=== PATIENT | female | born 1985 | race Caucasian/White ===

== ENCOUNTER 2019-03-14 08:02 | Inpatient (IN) | payer OTHER ==
[2019-03-14] MEDS ORDERED: Lactated Ringers 1000 ML Bag* 1,000 ML IV ONE ×2 (09:24→23:16)
[2019-03-14] MEDS ORDERED: Buffered Lidocaine 1% SYRIN* 1 ML/SYRINGE INTRADERM ONE (09:24)
--- NOTE | 2019-03-14 09:34 | HP ---
General Information - Reason for Visit Post term for induction of labor - General Information Maternal Age: 34 Grav: 3 Para: 0 SAB: 0 IEA: 2 Estimated Due Date: 03/06/19 Determined By: Early Ultrasound Maternal Blood Type and Rh: O Negative - Results this Serology/RPR Result: Non-Reactive Rubella Result: Immune HBsAg Result: Negative HIV Result: Negative GBS Culture Result: Negative Past Medical History Delivery History: See Records Delivery History Comment: No previous deliveries Pertinent Past Medical History: Non-Contributory Pertinent Past Surgical History: None Pertinent Family History: See Records Family History Comment: Hypercholesteremia HTN Breast ca, mother COPD kidney dz CAD bladder cancer Heart dz diabetes - Antepartal Records Antepartal Records: Reviewed, Complicated by: - 1 elevated BP; of her mother; Rh negative Review of Systems Constitutional: Comfortable CV Complaint: No Respiratory: Shortness of Breath: No Gastrointestinal: Normal Bowel Movement, Nausea Genitourinary: No Leaking Fluid, Spotting Musculoskeletal: No Complaint Neurological: No Headache, Blurred Vission - Mild, past few days; possible MAI prodrome vs sleep deprivation Movement: Normal Exam Vital Signs 03/14/19 08:30 Temperature 98.7 F Pulse Rate 103 Respiratory 20 Rate Blood Pressure 117/78 (mmHg) O2 Sat by Pulse 99 Oximetry - Measurements Height: 5 ft 3 in Weight: 201 lb Weight in lbs: 201.101659 Body Mass Index (BMI): 35.6 Pre- Weight: 165 lb Weight Gained This : 36 lbs and 0 ozs - Exam Breast: Breast Exam Deferred CVA: No CVA Tenderness Extremities: No Edema Heart: Normal Rhythm/Heart Sounds HEENT: No Significant Findings Lungs: Clear Bilaterally Rectal: Rectal Exam Deferred Reflexes: DTR 2+, - - no clonus Thyroid: - - WNL @ entry to care - Abdominal Exam Abdomen Exam: Non-Tender, Fundal Height Consistent with Dates - Ultrasound/Biophysical Profile Ultrasound Status: Not Done Targeted Exam Findings Estimated Weight: 7.5-8lb Cervical Exam: 2cm Effacement: 80% Station: -1 Presenting Part: Vertex Membrane Status: Intact Bleeding/Discharge: None EFM Findings - External Monitor Findings Baseline Heart Rate: 150 External Monitor Findings: Accelerations Present, No Pattern of Variable or Late Decelerations, Variability Moderate Contractions: Irregular, Mild Contraction Frequency: "cramping" Assessment/Plan - Assessment IUP @ 41+1 weeks gestation for induction of labor. Intact membrane. No evidence acidemia. - Plan Plan: Induction, Admit - Anticipate Vaginal Delivery Plan Comment: Admit to L&D. MAYANK discussion ripening with Cook's balloon catheter with addition of pitocin for ripening/induction. Patients in agreement. Will likely desire epidural but may consider nitrous for pain management. Anticipate SVB. - Date/Time of Admission Date of Admission: 03/14/19 Time of Admission: 09:15
[2019-03-14] MEDS ORDERED: Lactated Ringers 1000 ML Bag* 1,000 ML IV SCH ×3 (10:00→23:45)
[2019-03-14 10:22] LABS: Urine Benzodiazepine Screen None Detected (None Detect); Urine Opiates Screen None Detected (None Detect)
[2019-03-14 13:04] LABS: ABS Basophils 0.1 10^3/ul (0-0.2); ABS Eosinophils 0.1 10^3/ul (0-0.6); ABS Lymphocytes 1.4 10^3/ul (1.0-4.8); ABS Monocytes 0.4 10^3/ul (0-0.8); ABS Neutrophils 8.4 10^3/ul (1.5-7.7); Eosinophil % 0.7 %; Hematocrit 37 % (35-47); Hemoglobin 13.1 g/dL (12.0-16.0); Lymphocyte % 13.5 %; Mean Corpuscular HGB Conc 35 g/dL (31-36); Mean Corpuscular Hemoglobin 32 pg (27-31); Mean Corpuscular Volume 93 fL (80-97); Mean Platelet Volume 8.4 fL (7.4-10.4); Platelet Count 213 10^3/uL (150-450); Red Blood Count 4.03 10^6 /uL (3.70-4.87); Red Cell Distribution Width 14 % (10-15); White Blood Count 10.3 10^3/uL (3.5-10.8)
--- NOTE | 2019-03-14 13:29 | PN ---
Progress Note - Progress Note Date of Service: 03/14/19 Note: S: Feeling comfortable, ate a little lunch. Was having more contractions when she was in bed but upright or on yoga ball they are less. O: VE deferred, Cook's filled to 80/80ml FHT 130 last check VSS, afebrile A: IUP @ 41+1 weeks gestation no evidence acidemia IBOW P: PARQ discussion using pitocin to augment cervical ripening/induction. Patient in agreement and will initiate low dose.
[2019-03-14] MEDS ORDERED: Oxytocin in LR* 20 UNITS/1,000 ML BAG IVPB SCH (14:00)
--- NOTE | 2019-03-14 20:37 | PN ---
Progress Note - Progress Note Date of Service: 03/14/19 Note: S: Patient comfortable. Feels ctx a little more strongly when she walks around but otherwise very manageable. O: VE: 6cm/90%/vtx -1 Pit at 12 FHT 135, +accels, no decels, mod kam VSS, afebrile UCs q 2-4 min A: IUP @ 41+1 weeks gestation for induction; early labor Intact membrane No evidence acidemia P: Per discussion with patient, will likely turn off pitocin at bedtime if no change in contraction pattern and opt to restart in am unless spontaneous labor. Therapeutic rest with nubain/phenergan discussed and PRN order written for difficulty sleeping.
[2019-03-14] MEDS ORDERED: Promethazine INJ(RESTRICTED)* 25 MG/ML 1 ML VIAL IV PRN (20:38)
[2019-03-14] MEDS ORDERED: Nalbuphine* 10 MG/ML 1 ML VIAL IV PRN (20:38)
[2019-03-14] MEDS ORDERED: OBEPIDURAL* 250 ML EPIDURAL ONE (22:10)
[2019-03-14] MEDS ORDERED: Phenylephrine 40 MCG/ML SYRINGE IV PUSH PRN ×2 (23:16)
[2019-03-14] MEDS ORDERED: Famotidine TAB* 20 MG PO PRN (23:16)
[2019-03-14] MEDS ORDERED: Sodium Citrate/Citric Acid* 15 ML UDC PO PRN (23:16)
[2019-03-14] MEDS ORDERED: Lactated Ringers 1000 ML Bag* 500 ML IV PRN ×2 (23:16)
[2019-03-14] MEDS ORDERED: OBEPIDURAL* 250 ML EPIDURAL SCH (23:45)
--- NOTE | 2019-03-15 01:46 | PN ---
Progress Note - Progress Note Date of Service: 03/15/19 Note: S: Feeling comfortable with epidural, notes a little sensation in her back. Got about an hour of sleep. Family leaving and will try to sleep again. O: VE deferred Pit @ 8 FHT 130, mod kam, +accels, no decels UCs q 2-3 min VSS, afebrile A: IUP @ 41+2 weeks gestation for induction of labor IBOW No evidence acidemia P: Encouraged rest and position changes side to side. Anticipate SVB.
--- NOTE | 2019-03-15 09:04 | PN ---
Progress Note - Progress Note Date of Service: 03/15/19 SOAP: Subjective: Pt comfortable with epidural, reports she slept well. Objective: Cervix: complete/ +1/ vtx/ bulging bag AROM performed to clear fluid Pitocin at 14 mu/min BP 126/87 FHR: baseline 145/ + accels/ no decels/ moderate variability UC:Q 2-3 minutes Assessment: Pt making good progress. No evidence of acidemia. Plan: AROM performed, will await increased sensation/ urge to push. Will do trial of pushing in 1 hour or sooner if experiencing urge to push.
[2019-03-15] MEDS ORDERED: Methylergonovine INJ* 0.2 MG/ML 1ML AMP ONE (11:49)
[2019-03-15] MEDS ORDERED: Witch Hazel PAD* JAR TOPICAL PRN (13:14)
[2019-03-15] MEDS ORDERED: Acetaminophen TAB* 325 MG PO PRN (13:14)
[2019-03-15] MEDS ORDERED: Dibucaine 1% 28.35 GM TUBE PR PRN (13:14)
[2019-03-15] MEDS ORDERED: Methylergonovine INJ* 0.2 MG/ML 1ML AMP IM ONE (13:14)
[2019-03-15] MEDS ORDERED: Glycerin ADULT SUPP PR PRN (13:14)
[2019-03-15] MEDS ORDERED: Oxytocin in LR* 20 UNITS/1,000 ML BAG IVPB SCH (14:00)
[2019-03-15] MEDS ORDERED: Lactated Ringers 1000 ML Bag* 1,000 ML IV SCH (14:00)
[2019-03-15] MEDS: Ibuprofen TAB* 600 MG PO PRN ×2 (14:39→20:41)
[2019-03-15] MEDS: Docusate CAP* 100 MG PO SCH ×2 (14:41→20:41)
[2019-03-16] MEDS: Ibuprofen TAB* 600 MG PO PRN ×3 (03:51→20:57)
[2019-03-16 07:01] LABS: ABS Eosinophils 0.2 10^3/ul (0-0.6); ABS Lymphocytes 2.2 10^3/ul (1.0-4.8); ABS Monocytes 0.9 10^3/ul (0-0.8); ABS Neutrophils 11.9 10^3/ul (1.5-7.7); Eosinophil % 1.2 %; Hematocrit 29 % (35-47); Hemoglobin 10.2 g/dL (12.0-16.0); Lymphocyte % 14.3 %; Mean Corpuscular HGB Conc 35 g/dL (31-36); Mean Corpuscular Hemoglobin 33 pg (27-31); Mean Corpuscular Volume 94 fL (80-97); Mean Platelet Volume 8.4 fL (7.4-10.4); Platelet Count 176 10^3/uL (150-450); Red Blood Count 3.11 10^6 /uL (3.70-4.87); Red Cell Distribution Width 14 % (10-15); White Blood Count 15.2 10^3/uL (3.5-10.8)
[2019-03-16] MEDS: Ferrous Gluconate TAB* 324 MG TAB PO SCH ×2 (08:11→21:13)
[2019-03-16] MEDS: Docusate CAP* 100 MG PO SCH ×3 (08:11→20:57)
--- NOTE | 2019-03-16 09:59 | PROCNOTE ---
[facility] OB: Delivery Note - Delivery A Date of : 03/15/19 Time of : 11:31 [place] Sex: Female Weight at : 3.33 kg Score 1 Minute: 9 Score 5 Minutes: 9 Gestational Age in Weeks and Days at Delivery: 41 Weeks and 2 Days Delivery Method: Spontaneous Vaginal Labor: Induced Did Patient attempt ?: N/A, No Previous Amniotic Fluid: Clear Anesthesia/Analgesia: CEI for Labor Delivered By: Alie Giron - Nursery Level of Nursery: Regular/Bedside - Perineum Perineal Injury Comment: left labial Perineal Repair: By Delivering Practioner - Events Delivery Events of Note: Pitocin During Labor, Post- Bleeding - Meds Given - Risk for Falls Other Risk for Falls: none - Additional Delivery Notes Additional Delivery Notes: Pt admitted to L&D for postdates induction of labor. Pt underwent cervical ripening followed by Pitocin induction. Pt requested and received labor epidural with good pain relief. AROM performed to clear fluid at 8cm and pt progressed to full dilation. Pt coached on pushing and began to push with good effort and steady descent. brought to and pt coached through slow, controlled delivery of the head. Shoulders followed with next push , and placed on maternal abdomen, dried and stimulated, with vigorous cry , good tone, HR> 100. After pulsation ceased, cord clamped x2 and cut by pt's sister. Placenta son delivered, don side with gentle cord traction. Pt with initial heavy bleeding, resolved with fundal massage, Pitocin administration and methergine administration. Inspection of the perineum revealed small left labial laceration, repaired. Pt and stable at this time, anticipate normal course.
[2019-03-16] MEDS ORDERED: RHO D Immune Globulin (HUMAN)* 300 MCG = 1,500 I.U. INJ IM ONE ×2 (11:47→12:31)
--- NOTE | 2019-03-16 17:51 | PTEDU ---
Patient Name: BILL GONZALEZ BILL GONZALEZ selected video: Follow Me Mum: The to Successful to view on 03/16/20 19 at 5:49:20 PM from [id number]
[2019-03-17 08:11] VITALS: BP 112/67
[2019-03-17] MEDS: Ferrous Gluconate TAB* 324 MG TAB PO SCH (08:26)
[2019-03-17] MEDS: Docusate CAP* 100 MG PO SCH (08:26)
[2019-03-17] MEDS: Ibuprofen TAB* 600 MG PO PRN (10:05)
== END 2019-03-17 11:05 | disposition home or self-care (01) | DRG 560 ==
LOC: MCHOBOUT 08:02 → MCHOB 09:19
PROVIDERS: ADMIT Midwife; ATTEND Midwife
PROC: 10E0XZZ Delivery of Products of Conception, External Approach (ICD-10-PCS; principal; 2019-03-14)
PROC: 4A1HXCZ Monitoring of Products of Conception, Cardiac Rate, External Approach (ICD-10-PCS; 2019-03-14)
PROC: 0UQMXZZ Repair Vulva, External Approach (ICD-10-PCS; 2019-03-14)
PROC: 10907ZC Drainage of Amniotic Fluid, Therapeutic from Products of Conception, Via Natural or Artificial Opening (ICD-10-PCS; 2019-03-14)
PROC: 0U7C7ZZ Dilation of Cervix, Via Natural or Artificial Opening (ICD-10-PCS; 2019-03-14)
DX: O48.0 Post-term pregnancy (principal); O72.1 Other immediate postpartum hemorrhage; Z37.0 Single live birth; Z3A.41 41 weeks gestation of pregnancy; O70.0 First degree perineal laceration during delivery; Z67.41 Type O blood, Rh negative
CPT/HCPCS: 36415; 80307; 85025; 85461; 86850; 86900; 86901; A9270-GY; J2210; J2790

== ENCOUNTER 2020-09-10 11:58 | Inpatient (IN) ==
[2020-09-10] MEDS ORDERED: Lactated Ringers 1000 ml BAG 1,000 ML IV ONE ×2 (13:01→20:11)
[2020-09-10] MEDS ORDERED: Buffered Lidocaine 1% SYRIN 1 ml INTRADERM ONE (13:01)
[2020-09-10] MEDS ORDERED: Oxytocin in LR 20 UNITS/1,000 ML BAG IVPB SCH ×2 (14:00→23:00)
[2020-09-10] MEDS ORDERED: Lactated Ringers 1000 ml BAG 1,000 ML IV SCH ×3 (14:00→21:00)
[2020-09-10 14:14] LABS: ABS Basophils 0.1 10^3/ul (0-0.2); ABS Eosinophils 0.2 10^3/ul (0-0.6); ABS Lymphocytes 2.2 10^3/ul (1.0-4.8); ABS Monocytes 0.6 10^3/ul (0-0.8); ABS Neutrophils 8.5 10^3/ul (1.5-7.7); Eosinophil % 1.4 %; Hematocrit 35 % (35-47); Hemoglobin 11.7 g/dL (12.0-16.0); Lymphocyte % 18.9 %; Mean Corpuscular HGB Conc 33 g/dL (31-36); Mean Corpuscular Hemoglobin 30 pg (27-31); Mean Corpuscular Volume 89 fL (80-97); Mean Platelet Volume 8.5 fL (7.4-10.4); Nucleated Red Blood Cells % 0.1; Platelet Count 235 10^3/uL (150-450); Red Blood Count 3.91 10^6 /uL (3.70-4.87); Red Cell Distribution Width 13 % (10-15); White Blood Count 11.4 10^3/uL (3.5-10.8)
[2020-09-10 14:43] LABS: Urine Benzodiazepine Screen None Detected (None Detect); Urine Cannabinoids Screen None Detected (None Detect); Urine Opiates Screen None Detected (None Detect)
[2020-09-10] MEDS ORDERED: Calcium Carb (TUMS) 500 mg CHEW TAB PO PRN (16:54)
[2020-09-10] MEDS ORDERED: OBEPIDURAL 250 ML EPIDURAL ONE (19:27)
[2020-09-10] MEDS ORDERED: Sodium Citrate/Citric Acid LIQ 15 ML UDC PO PRN (20:11)
[2020-09-10] MEDS ORDERED: Phenylephrine 40 mcg/mL 10mL (400mcg) SYRINGE IV PUSH PRN ×2 (20:11)
[2020-09-10] MEDS ORDERED: Lactated Ringers 1000 ml BAG 500 ML IV PRN ×2 (20:11)
[2020-09-10] MEDS ORDERED: OBEPIDURAL 250 ML EPIDURAL SCH (21:00)
[2020-09-10] MEDS ORDERED: Witch Hazel PAD JAR TOPICAL PRN (22:37)
[2020-09-10] MEDS ORDERED: Dibucaine 1% OINT 28.35 GM TUBE PR PRN (22:37)
[2020-09-10] MEDS ORDERED: Glycerin ADULT 2.4 gm SUPP PR PRN (22:37)
[2020-09-11] MEDS ORDERED: RHO D Immune Globulin (HUMAN) 300 MCG = 1,500 I.U. INJ IM PRN (06:00)
[2020-09-11 06:34] LABS: ABS Basophils 0.1 10^3/ul (0-0.2); ABS Eosinophils 0.2 10^3/ul (0-0.6); ABS Lymphocytes 2.3 10^3/ul (1.0-4.8); ABS Monocytes 0.8 10^3/ul (0-0.8); Eosinophil % 1.5 %; Hematocrit 26 % (35-47); Hemoglobin 9.1 g/dL (12.0-16.0); Lymphocyte % 22.4 %; Mean Corpuscular HGB Conc 35 g/dL (31-36); Mean Corpuscular Hemoglobin 30 pg (27-31); Mean Corpuscular Volume 87 fL (80-97); Mean Platelet Volume 8.3 fL (7.4-10.4); Platelet Count 207 10^3/uL (150-450); Red Cell Distribution Width 13 % (10-15); White Blood Count 10.3 10^3/uL (3.5-10.8)
[2020-09-12 07:48] VITALS: BP 118/77
== END 2020-09-12 10:52 | disposition home or self-care (01) | DRG 560 ==
LOC: MCHOBOUT 11:58 → MCHOB 13:08
PROVIDERS: ADMIT Midwife; ATTEND Midwife